=== PATIENT | male | born 1965 | race Caucasian/White ===

== ENCOUNTER 2018-01-21 20:11 | Emergency (ER) | payer MEDICAID ==
[~2018-01-21] VITALS: Ht 180.3 cm; Wt 65.6 kg
[2018-01-21 20:27] VITALS: BP 147/88
[2018-01-21] MEDS ORDERED: LORazepam 1MG TABLET ONE (20:50)
[2018-01-21] MEDS ORDERED: ONDANSETRON ODT 4 MG ONE (20:51)
[2018-01-21] MEDS ORDERED: LORazepam 1MG TABLET PO ONE (21:00)
[2018-01-21] MEDS ORDERED: ONDANSETRON ODT 8 MG PO ONE (21:00)
[2018-01-21 21:07] LABS: BASOPHILS # (AUTO) 0.07 x10^3/uL (0-0.1); BASOPHILS % (AUTO) 2 % (0-1); EOSINOPHILS # (AUTO) 0.07 x10^3/uL (0-0.4); EOSINOPHILS % (AUTO) 2 % (1-7); LYMPHOCYTES # (AUTO) 1.62 x10^3/uL (1-3.4); LYMPHOCYTES % (AUTO) 41 % (22-44); MD NO; MEAN CORPUSCULAR HEMOGLOBIN 32.3 pg (27.5-34.5); MEAN CORPUSCULAR HGB CONC 33.8 g/dL (33.2-36.2); MEAN CORPUSCULAR VOLUME 95.6 fL (81-97); MEAN PLATELET VOLUME 7.8 fL (7.4-10.4); MONOCYTES % (AUTO) 13 % (2-9); NEUTROPHILS % (AUTO) 43 % (42-75); PLATELET COUNT 520 x10^3/uL (130-400); RED CELL DISTRIBUTION WIDTH 15.9 % (9.4-14.8)
[2018-01-21 21:12] LABS: ALANINE AMINOTRANSFERASE 290 U/L (12-78); ALBUMIN 3.2 g/dL (3.4-5.0); ANION GAP 9 mmol/L (5-15); CALCIUM 8.5 mg/dL (8.5-10.1); CHLORIDE 105 mmol/L (98-107); CREATININE 0.85 mg/dL (0.7-1.3)
[2018-01-21 21:15] LABS: ALKALINE PHOSPHATASE 243 U/L (45-117); BILIRUBIN,TOTAL 0.4 mg/dL (0.2-1.0); TOTAL PROTEIN 7.4 g/dL (6.4-8.2)
== END 2018-01-21 22:30 | disposition home or self-care (01) ==
LOC: ED 21:51
DX: K70.10 Alcoholic hepatitis without ascites (principal); F10.10 Alcohol abuse, uncomplicated; C61 Malignant neoplasm of prostate; Z59.0 Homelessness; Z91.14 Patient's other noncompliance with medication regimen
CPT/HCPCS: 36415; 76700; 80053; 80307; 83690; 85025; 99285; Q0162